=== PATIENT | male | born 1945 | race Caucasian/White ===

== ENCOUNTER 2019-10-22 11:53 | Emergency (ER) | payer MEDICARE ==
[~2019-10-22 11:53] MED LIST: BACTROBAN TOP; DOXYCYCL HYC100 MG PO; HYDREA 500500 MG/CAP PO; HYDREA500 MG PO; NAPROSYN500 MG PO; OXYCOD/APAP1 TA4 PO; SANTYL250 MG/GM EX
[2019-10-22] MEDS ORDERED: SYMBICORT1 AE1 IN (12:03)
[2019-10-22] MEDS ORDERED: SPIRIVA HANDIH18 MCG IN (12:04)
[2019-10-22] MEDS ORDERED: LORTAB 7.57.5 MG PO (12:20)
[2019-10-22] MEDS ORDERED: PENICILLN VK500 MG PO (12:20)
[2019-10-22 12:25] VITALS: BP 187/88
== END 2019-10-22 12:25 | disposition home or self-care (01) ==
LOC: ED 11:53
DX: K04.7 Periapical abscess without sinus (principal); M84.68XA Pathological fracture in other disease, other site, initial encounter for fracture; J44.9 Chronic obstructive pulmonary disease, unspecified

== ENCOUNTER 2022-06-18 08:10 | Emergency (ER) | payer MEDICARE ==
[~2022-06-18] VITALS: Ht 177.8 cm; Wt 72.7 kg
[2022-06-18] VITALS (22 sets, daily range): BP systolic 121–157; BP diastolic 45–69
[~2022-06-18 08:10] MED LIST changes: +LORTAB 7.57.5 MG PO; +PENICILLN VK500 MG PO; +SPIRIVA HANDIH18 MCG IN; +SYMBICORT1 AE1 IN
[2022-06-18] MEDS ORDERED: CLOPIDOGREL75 MG PO (08:20)
[2022-06-18] MEDS ORDERED: SERTRALINE50 MG PO (08:20)
[2022-06-18] MEDS ORDERED: ASPIRIN81 MG PO (08:21)
[2022-06-18] MEDS ORDERED: HYDROCHLOROT25 MG PO (08:21)
[2022-06-18] MEDS ORDERED: FERRAPLUS 90 PO (08:21)
[2022-06-18] MEDS ORDERED: SPIRIVA HANDIH18 MCG IN (08:22)
[2022-06-18 09:02] LABS: ALKALINE PHOSPHATASE 65 u/l (38-126); ANION GAP 14 (6-22 (CALC)); BUN 26 mg/dL (8-23); BUN/CREATININE RATIO 30 (12-20 (CALC)); CARBON DIOXIDE 27 mmol/l (22-30); CHLORIDE 105 mmol/l (95-108); CREATININE 0.9 mg/dL (0.7-1.3); GFR FOR AFR.AMER. > 60 ML/MIN (>=60 (CALC)); GFR OTHER RACES > 60 ML/MIN (>=60 (CALC)); POTASSIUM 3.8 mmol/l (3.5-5.1); SODIUM 142 mmol/l (137-146)
[2022-06-18 09:06] LABS: INTERNATIONAL NORMALIZED RATIO 1.2 RATIO (0.7-1.3); PROTHROMBIN TIME 11.5 SECONDS (9.0-12.5)
[2022-06-18 09:07] LABS: ALBUMIN 4.1 g/dL (3.2-5.0); BILIRUBIN, TOTAL 0.3 mg/dL (0.0-1.4); TOTAL PROTEIN 7.2 g/dL (6.3-8.2)
[2022-06-18 09:08] LABS: SGOT/AST 36 u/l (19-48)
[2022-06-18 09:15] LABS: MEAN CELL VOLUME 107.1 fL CALC (80.0-100.0); MEAN CORPUSCULAR HGB 33.1 pG CALC (26.0-32.0); MEAN CORPUSCULAR HGB CONC 30.9 g/dL CAL (32.0-36.0); RED BLOOD COUNT 1.69 mill/uL (4.70-6.10); RED CELL DISTRI WIDTH 23.1 % (11.5-15.5)
[2022-06-18 09:29] LABS: HEMATOCRIT 18.1 % (39.0-50.0); HEMOGLOBIN 5.6 g/dl (14.0-18.0); IMMATURE GRANULOCYTES 5.3 % (0.0-5.0)
[2022-06-18 09:48] LABS: MANUAL DIFFERENTIAL YES
[2022-06-18 09:59] LABS: BAND 1 % (0-8)
[2022-06-18 10:02] LABS: PLATELET COUNT 2584 thou/uL (130-400)
== END 2022-06-18 12:44 | disposition short-term general hospital (02) ==
LOC: ED 08:10
PROVIDERS: Internal Medicine
PROC: 30233N1 Transfusion of Nonautologous Red Blood Cells into Peripheral Vein, Percutaneous Approach (ICD-10-PCS; principal; 2022-06-18)
DX: R06.02 Shortness of breath (principal); D64.9 Anemia, unspecified; K92.2 Gastrointestinal hemorrhage, unspecified; I50.9 Heart failure, unspecified; R91.8 Other nonspecific abnormal finding of lung field; J44.9 Chronic obstructive pulmonary disease, unspecified; Z95.3 Presence of xenogenic heart valve; Z79.02 Long term (current) use of antithrombotics/antiplatelets; Z79.899 Other long term (current) drug therapy
CPT/HCPCS: P9016; S0164